=== PATIENT | male | born 1990 | race Two or more races ===

== ENCOUNTER 2022-10-15 14:48 | Emergency (ER) | payer MEDICAID, OTHER ==
[~2022-10-15] VITALS: Ht 172.7 cm; Wt 80.0 kg
[2022-10-15] MEDS ORDERED: LORazepam 2MG/ML-1ML VIAL IM ONE ×2 (15:30→15:45)
[2022-10-15 15:40] VITALS: PULSE 110; RESP 19; O2SAT 97
[2022-10-15 15:44] LABS: Basophils # (auto) 0.1 10 ^3/uL (0-0.2); Basophils % (auto) 1.3 % (0.0-2.0); Eosinophils # (auto) 0 10 ^3/uL (0-0.8); Eosinophils % (auto) 0.5 % (0.0-7.0); Hematocrit 36.3 % (41.0-53.0); Hemoglobin 12.2 g/dL (13.5-17.5); Lymphocytes # (auto) 1.7 10 ^3/uL (0.4-5.4); Mean Corpuscular Hemoglobin 28.6 pg (28.0-32.0); Mean Corpuscular Hgb Conc. 33.7 g/dL (32.0-36.0); Mean Corpuscular Volume 84.9 fL (80.0-100.0); Monocytes # (auto) 0.8 10 ^3/uL (0-1.3); Monocytes % (auto) 11.4 % (0.0-12.0); Neutrophils # (auto) 4.5 10 ^3/uL (1.6-8.6); Neutrophils % (auto) 62.8 % (37.0-80.0); Nucleated Red Blood Cells % 0.1 %; Red Blood Cells 4.28 10^6/uL (4.5-5.90); Red Cell Distribution Width 13.8 % (11.8-14.3); White Blood Cell 7.2 10^3/uL (4.4-10.8)
[2022-10-15] MEDS ORDERED: HALOPERIDOL LACTATE 5 MG/ML INJ VIAL IM ONE ×2 (15:45)
[2022-10-15] MEDS ORDERED: LORazepam 2MG/ML-1ML VIAL IV ONE (15:45)
[2022-10-15] MEDS ORDERED: diphenhdrAMINE HCL 50 MG/1 ML VL IM ONE (15:45)
[2022-10-15] MEDS ORDERED: diphenhdrAMINE HCL 50 MG/1 ML VL IV ONE (15:45)
[2022-10-15 16:01] LABS: Albumin 4.2 g/dL (3.4-5.0); Calcium 9.2 mg/dL (8.5-10.1); Potassium 3.5 mmol/L (3.5-5.1)
[2022-10-15 16:04] LABS: BUN/Creatinine Ratio 13.2 (10.0-20.0); Bilirubin, Total 0.7 mg/dL (0.2-1.0); Total Protein 7.7 g/dL (6.4-8.2)
[2022-10-15 16:48] LABS: Alcohol, Urine < 3.0 mg/dL (0-10); Amphetamine Screen, Urine NEGATIVE (NEGATIVE); Barbiturate Scree,Urine NEGATIVE (NEGATIVE); Benzodiazephine Screen, Urine NEGATIVE (NEGATIVE); Cannabinoid Screen, Urine POSITIVE (NEGATIVE); Cocaine Screen, Urine NEGATIVE (NEGATIVE); Phencyclidine Screen, Urine NEGATIVE (NEGATIVE)
[2022-10-15 16:56] LABS: Opiate Scree,Urine NEGATIVE (NEGATIVE)
[2022-10-15 19:40] VITALS: PULSE 69; RESP 16; O2SAT 94
[2022-10-15 20:06] VITALS: TEMP 97.4
[2022-10-15 22:00] VITALS: BP 124/64; PULSE 72; O2SAT 90
[2022-10-16] MEDS ORDERED: OLANZapine 5 MG TAB PO ONE (06:30)
[2022-10-16 08:45] VITALS: RESP 20
[2022-10-16] MEDS ORDERED: OLAN1TAB7 PO (09:36)
== END 2022-10-16 09:54 | disposition home or self-care (01) ==
LOC: ER 14:48 → EDBD 14:48 → ER 10-16 09:52
DX: F25.9 Schizoaffective disorder, unspecified (principal); F31.9 Bipolar disorder, unspecified; F15.90 Other stimulant use, unspecified, uncomplicated
CPT/HCPCS: 36415; 70450; 80053; 80307; 83690; 85025; 96372; 96374; 96375; 99285; J1200; J1630; J2060

== ENCOUNTER 2024-11-09 16:09 | Emergency (ER) | payer MEDICAID ==
[~2024-11-09] VITALS: Ht 167.6 cm; Wt 88.5 kg
[~2024-11-09 16:09] MED LIST: OLAN1TAB7 PO
[2024-11-09 18:59] VITALS: BP 159/102; PULSE 84; RESP 20; TEMP 98; O2SAT 99
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
[2024-11-09] MEDS ORDERED: SILV1CRE82 EX (19:58)
[2024-11-09] MEDS: OLANZapine 5 MG TAB PO ONE (20:09)
[2024-11-09] MEDS: SILVER SULFADIAZINE 1 % TOPICAL CREAM 50GM TOP ONE (20:09)
== END 2024-11-09 20:20 | disposition home or self-care (01) ==
LOC: ER 16:09
DX: T20.40XA Corrosion of unspecified degree of head, face, and neck, unspecified site, initial encounter (principal); F20.9 Schizophrenia, unspecified; X58.XXXA Exposure to other specified factors, initial encounter; Y93.89 Activity, other specified; Y92.89 Other specified places as the place of occurrence of the external cause; Y99.8 Other external cause status
CPT/HCPCS: 16000